=== PATIENT | female | born 1985 | race Two or more races ===

== ENCOUNTER 2017-02-06 21:33 | Emergency (ER) | payer OTHER ==
[~2017-02-06] VITALS: Ht 170.2 cm; Wt 88.9 kg
[2017-02-06 22:51] VITALS: BP 126/79
== END 2017-02-06 22:51 | disposition home or self-care (01) ==
LOC: ED 21:33
DX: S81.852A Open bite, left lower leg, initial encounter (principal); W54.0XXA Bitten by dog, initial encounter; Y93.89 Activity, other specified; Y99.8 Other external cause status; Y92.89 Other specified places as the place of occurrence of the external cause
CPT/HCPCS: 90715

== ENCOUNTER 2017-08-24 12:32 | Emergency (ER) | payer OTHER ==
[~2017-08-24] VITALS: Ht 167.6 cm; Wt 88.9 kg
[2017-08-24 12:38] VITALS: Ht 167.6 cm; Wt 88.9 kg
[2017-08-24 13:56] LABS: BASOPHIL % 0.7 % (0-2); PLATELET COUNT 322 x10^3mcL (130-400)
[2017-08-24 13:57] LABS: CALCIUM 9.1 mg/dL (8.5-10.1); CARBON DIOXIDE 27.1 mmol/L (21-32); CHLORIDE SERUM 101 mmol/L (98-107); CREATININE SERUM 0.7 mg/dL (0.6-1.0); GFR1 > 60 mL/min; GLUCOSE SERUM 105 mg/dL (74-106); POTASSIUM SERUM 3.3 mmol/L (3.5-5.1); SODIUM SERUM 140 mmol/L (136-145)
[2017-08-24 14:02] LABS: ALKALINE PHOSPHATASE 60 U/L (46-116); ALT/SGPT 22 U/L (14-59); AST/SGOT 16 U/L (15-37); LIPASE 109 IU/L (73-393); TOTAL PROTEIN, SERUM 8.4 g/dL (6.4-8.2)
[2017-08-24 14:05] LABS: RED CELL DISTRIBUTION WIDTH 19.4 % (11.5-14.5)
[2017-08-24 15:25] VITALS: BP 130/70
== END 2017-08-24 15:25 | disposition home or self-care (01) ==
LOC: ED 12:32
PROVIDERS: Emergency Medicine
DX: R10.9 Unspecified abdominal pain (principal); R11.0 Nausea
CPT/HCPCS: 36415

== ENCOUNTER 2019-11-15 12:58 | Emergency (ER) | payer OTHER ==
[~2019-11-15] VITALS: Ht 170.2 cm; Wt 89.4 kg
[2019-11-15 13:05] VITALS: Ht 170.2 cm; Wt 89.4 kg
== END 2019-11-15 13:38 | disposition home or self-care (01) ==
LOC: ED 12:58
DX: H16.001 Unspecified corneal ulcer, right eye (principal)